=== PATIENT | male | born 1970 | race Caucasian/White ===

== ENCOUNTER 2018-05-24 13:26 | Emergency (ER) | payer SELFPAY ==
--- NOTE | 2018-05-24 14:40 | PDOC ---
History of Present Illness - General Chief Complaint: Chest Pain Stated Complaint: CHEST PAIN Time Seen by Provider: 05/24/18 13:47 History Source: Patient Exam Limitations: Language Barrier - History of Present Illness Initial Comments: 05/24/18 14:36 Pt is a 47yo M with no significant PMH presenting to ED with complaints of chest pain. Pt states the pain started last night when he was lying in bed holding up his tablet trying to read. He states the pain had been constant yesterday but is intermittent today. The pain is in the middle/left side of his chest and feels like "something is pulling on the heart". Does not radiate, not associated with diaphoresis. He denies headache, neck pain, abdominal pain, n/v/ d, back pain, changes in vision, swelling in the legs, cough, hemoptysis, fevers , chills, recent travel, recent surgeries. He has not taken any medications and nothing makes the pain better or worse. The pt was told "a long time ago" that it could be due to his muscles but he states the pain today is different from then. No FH of SD in the family. Not having any pain right now PMD: PMH: none PSH: cholecystectomy, hernia repair Meds: none Allergies: nkda Social: denies tobacco, alcohol use 05/24/18 14:44 Past History - Past Medical History Allergies/Adverse Reactions: Allergies Allergy/AdvReac Type Severity Reaction Status Date / Time No Known Allergies Allergy Verified 05/24/18 14:47 Home Medications: Ambulatory Orders NK [No Known Home Medication] 05/24/18 Review of Systems - Review of Systems Constitutional: No: Chills, Fever HEENTM: No: Symptoms Reported Respiratory: No: Cough, Shortness of Breath, SOB with Exertion Cardiac (ROS): Yes: See HPI, Chest Pain. No: Lightheadedness, Palpitations, Syncope ABD/GI: No: Symptoms Reported : No: Symptoms Reported Musculoskeletal: Yes: See HPI Integumentary: No: Symptoms Reported Neurological: No: Symptoms reported *Physical Exam - Vital Signs Last Vital Signs Temp Pulse Resp BP Pulse Ox 98.2 F 76 16 143/94 98 05/24/18 14:43 05/24/18 14:43 05/24/18 14:43 05/24/18 14:43 05/24/18 14:43 - Physical Exam General Appearance: Yes: Nourished, Appropriately Dressed. No: Apparent Distress HEENT: positive: EOMI, MINNA Neck: positive: Trachea midline, Supple. negative: Lymphadenopathy (R), Lymphadenopathy (L) Respiratory/Chest: positive: Lungs Clear, Normal Breath Sounds. negative: Crackles, Rales, Rhonchi, Stridor Cardiovascular: positive: Regular Rhythm, Regular Rate, S1, S2. negative: Edema , JVD, Murmur Vascular Pulses: Carotid (R): 2+, Carotid (L): 2+ Gastrointestinal/Abdominal: positive: Normal Bowel Sounds, Soft. negative: Distended, Guarding, Rebound, Tenderness, Hernia Musculoskeletal: negative: CVA Tenderness Extremity: positive: Normal Capillary Refill, Pelvis Stable. negative: Pedal Edema, Swelling Integumentary: positive: Normal Color, Dry, Warm Neurologic: positive: retail event assistant II-XII NML intact, Fully Oriented, Alert, Normal Mood/ Affect, Normal Response, Motor Strength 5/5 Heart Score/ECG Review - History History: Slightly suspicious - Electrocardiogram EKG: Normal - Age Age: 45-65 - Risk Factors Based on the list above the patient has:: No risk factors known - Troponin Troponin: </= normal limit - Score Heart Score - Total: 1 Moderate Sedation - Procedure Monitoring Vital Signs: Procedure Monitoring Vital Signs Temperature 98.2 F 05/24/18 14:43 Pulse Rate 76 05/24/18 14:43 Respiratory Rate 16 05/24/18 14:43 Blood Pressure 143/94 05/24/18 14:43 O2 Sat by Pulse Oximetry (%) 98 05/24/18 14:43 ED Treatment Course - LABORATORY CBC & Chemistry Diagram: 05/24/18 14:48 05/24/18 14:48 - ADDITIONAL ORDERS Additional order review: 05/24/18 14:48 RBC 4.92 MCV 90.3 MCHC 34.5 RDW 13.2 MPV 11.2 H Neutrophils % 52.1 Lymphocytes % 36.9 Monocytes % 8.6 Eosinophils % 1.4 Basophils % 1.0 - RADIOLOGY Radiology Studies Ordered: Category Date Time Status CHEST PA & LAT [RAD] Stat Radiology 05/24/18 14:43 Completed - Medications Given in the ED: ED Medications Discontinued Medications Generic Name Dose Route Start Last Admin Trade Name Freq PRN Reason Stop Dose Admin Acetaminophen 975 mg 05/24/18 15:11 05/24/18 15:25 Tylenol - PO 05/24/18 15:12 975 mg ONCE ONE Administration Medical Decision Making - Medical Decision Making 05/24/18 14:40 Pt is a 47yo M with no significant PMH presenting to ED with complaints of chest pain. Pt states the pain started last night when he was lying in bed holding up his tablet trying to read. He states the pain had been constant yesterday but is intermittent today. The pain is in the middle/left side of his chest and feels like "something is pulling on the heart". Does not radiate, not associated with diaphoresis. He denies headache, neck pain, abdominal pain, n/v/ d, back pain, changes in vision, swelling in the legs, cough, hemoptysis, fevers , chills, recent travel, recent surgeries. He has not taken any medications and nothing makes the pain better or worse. The pt was told "a long time ago" that it could be due to his muscles but he states the pain today is different from then. No FH of SD in the family. Vitals: wnl PE: benign -ddx includes but not limited to acs, msk, pe, ptx, infectious process -PERC negative. Most likely msk. -cbc, cmp, trop -ekg, cxr -tylenol. labs wnl, cxr does not show acute process, normal ekg. Will refer to cardiology. can be dc home. *DC/Admit/Observation/Transfer Diagnosis at time of Disposition: Chest pain Qualifiers: Chest pain type: unspecified Qualified Code(s): R07.9 - Chest pain, unspecified - Discharge Dispostion Disposition: HOME Condition at time of disposition: Good Decision to Admit order: No - Referrals Referrals: Benigno Leblanc MD [Staff Physician] - - Patient Instructions Printed Discharge Instructions: DI for Atypical Chest Pain Additional Instructions: You were seen in the emergency room for chest pain. The blood test, EKG and Xray were normal. I do not know the exact cause of your pain but it is not a heart attack. I do recommend that you see a clinical evaluator. You can see Dr. Leblanc I recommend that you see your primary care doctor sometime this week. For now you can take ibuprofen or Tylenol for the pain if you feel it. Come back to the emergency room if pain gets worse, you have difficulty breathing, you start sweating, you feel nauseous, the pain goes to your shoulders and down your left arm, or if any new concerning symptom develops. Thank you - Post Discharge Activity
[2018-05-24 14:48] VITALS: BP 143/94; PULSE 76; TEMP 98.2; BMI 33.6
[2018-05-24] MEDS ORDERED: ACETAMINOPHEN 500 MG TABLET (FP) PO ONE (15:11)
[2018-05-24 15:16] LABS: EOS % 1.4 % (0-4.5); HEMATOCRIT 44.4 % (35.4-49); HEMOGLOBIN 15.3 GM/dL (11.7-16.9); LYMPH % 36.9 % (8-40); MCH 31.1 pg (25.7-33.7); MCHC 34.5 g/dl (32.0-35.9); MEAN CELL VOLUME 90.3 fl (80-96); MEAN PLT VOLUME 11.2 fl (7.5-11.1); MONO % 8.6 % (3.8-10.2); NEUT % 52.1 % (42.8-82.8); PLATELET COUNT 144 K/MM3 (134-434); RBC 4.92 M/mm3 (4.00-5.60); RDW 13.2 % (11.9-15.9)
--- NOTE | 2018-05-24 15:17 | PDOC ---
Attending Attestation - HPI HPI: 05/24/18 15:43 The patient is a 47 year old male with no significant PMH of who presents to the emergency department with chest pain for 2 days. The patient reports the he was at home last night in bed when he felt a sudden onset of chest pain. He states that his chest pain was constant on onset last night but is intermittent today. He reports similar episode about 10 years ago. He denies any shortness of breath, diaphoresis, or back pain. The patient also reports a current tooth infection for which he is scheduled for an extraction tomorrow. He denies any other symptoms of complaints. - Physicial Exam PE: 05/24/18 16:42 Vitals: Triage vital signs reviewed General Appearance: No acute distress, well nourished, well developed Head: Atraumatic Chest Wall: Nontender Cardiac: Regular rate and rhythm, no murmurs, no rubs, no gallops Lungs: Clear to auscultation bilateral, good air movement bilaterally Abdomen: Soft, nondistended, normal bowel sounds, nontender to palpation Extremities: Full range of motion to all extremities, no cyanosis, clubbing, or edema Skin: Warm and dry, no rashes or lesions, no rash, no petechiae Neuro: AOX3; Cranial Nerves 2-12 grossly intact, Strength intact to all extremities, Sensation intact to all extremities, gait normal Psych: Normal mood, normal affect <Forrest Serrano - Last Filed: 05/24/18 16:42> - Resident Resident Name: Prachi Bose - ED Attending Attestation I have performed the following: I have examined & evaluated the patient, The case was reviewed & discussed with the resident, I agree w/resident's findings & plan, Exceptions are as noted - Medical Decision Making 05/24/18 18:30 Atypical chest pain heart score 1 nonischemic EKG negative troponin likely muscular skeletal versus GI Patient provided with cardiology follow-up. Findings, the need for follow-up and strict return instructions discussed patient. <Zaid Smyth - Last Filed: 05/24/18 18:35> Heart Score/ECG Review - History History: Slightly suspicious - Electrocardiogram EKG: Normal - Age Age: 45-65 - Risk Factors Based on the list above the patient has:: No risk factors known - Troponin Troponin: </= normal limit - Score Heart Score - Total: 1 - ECG Impressions Comment:: 05/24/18 18:31 EKG performed at 1334 demonstrates sinus rhythm no cell elevations or T-wave inversions. Interpreted by me. <Zaid Smyth - Last Filed: 05/24/18 18:35> Attestations - Attestations 05/24/18 15:43 Documentation prepared by Forrest Serrano, acting as medical affairs director for Zaid Smyth MD. <Forrest Serrano - Last Filed: 05/24/18 16:42>
[2018-05-24] MEDS ORDERED: ACETAMINOPHEN 325 MG TABLET (FP) ONE (15:24)
[2018-05-24 15:30] LABS: INR 1.06 (0.83-1.09); PROTHROMBIN TIME (PATIENT) 12.5 SEC (9.7-13.0)
[2018-05-24 16:43] LABS: ALBUMIN 4.2 g/dl (3.4-5.0); ALK PHOS 94 U/L (45-117); ANION GAP 7 MMOL/L (8-16); BILIRUBIN,TOTAL 0.5 mg/dL (0.2-1); BLOOD UREA NITROGEN 9 mg/dL (7-18); CALCIUM 8.7 mg/dL (8.5-10.1); CHLORIDE 106 mmol/L (98-107); CO2 25 mmol/L (21-32); CREATININE 0.9 mg/dL (0.55-1.3); GLUCOSE,RANDOM 77 mg/dL (74-106); MAGNESIUM 2.3 mg/dL (1.8-2.4); POTASSIUM 4.1 mmol/L (3.5-5.1); SGOT/AST 28 U/L (15-37); SGPT/ALT 56 U/L (13-61); SODIUM 138 mmol/L (136-145); TOT PROT 7.3 g/dl (6.4-8.2)
--- NOTE | 2018-05-25 12:43 | EKG ---
Test Reason : Blood Pressure : / mmHG Vent. Rate : 074 BPM Atrial Rate : 074 BPM P-R Int : 160 ms QRS Dur : 088 ms QT Int : 376 ms P-R-T Axes : 043 019 041 degrees QTc Int : 417 ms NORMAL SINUS RHYTHM POSSIBLE LEFT ATRIAL ENLARGEMENT BORDERLINE ECG NO PREVIOUS ECGS AVAILABLE Confirmed by DALE AGUDELO, VENU ([id number]) on 05/25/2018 12:43:08 PM Referred By: Confirmed By:VENU HUNTER MD
== END 2018-05-24 17:20 | disposition home or self-care (01) ==
LOC: JER 13:26
DX: R07.9 Chest pain, unspecified (principal)
CPT/HCPCS: 36415; 71046-TC-FY; 80053; 83735; 84484; 85025; 85610; 85730; 93005; 93010; 99285-25